=== PATIENT | female | born 1985 | race Caucasian/White ===

== ENCOUNTER → 2018-03-16 | Outpatient (CLI) | payer BC ==
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
== END ==
LOC: M PAIN 14:15
PROVIDERS: ATTEND Anesthesiology
DX: R29.90 Unspecified symptoms and signs involving the nervous system (principal); K21.9 Gastro-esophageal reflux disease without esophagitis; R20.0 Anesthesia of skin; F31.9 Bipolar disorder, unspecified; F60.3 Borderline personality disorder; F41.1 Generalized anxiety disorder; G43.909 Migraine, unspecified, not intractable, without status migrainosus; M50.20 Other cervical disc displacement, unspecified cervical region; I73.00 Raynaud's syndrome without gangrene; G56.01 Carpal tunnel syndrome, right upper limb; Z98.84 Bariatric surgery status; Z79.899 Other long term (current) drug therapy; Z88.2 Allergy status to sulfonamides

== ENCOUNTER → 2018-03-22 | Outpatient (CLI) | payer BC ==
[~2018-03-22] MED LIST: LIDOCAINE 1% SDV INJ 30 ML VIAL As Ordered ONE; MIDAZOLAM INJ 2 MG/2 ML VIAL (J2250) As Ordered ONE; ONDANSETRON 4MG/2ML VIAL (J2405) As Ordered ONE; fentaNYL 100 MCG/2 ML INJECTION (J3010) As Ordered ONE
[2018-03-22 16:35] LABS: CSF TUBE# GLU TUBE 1; CSF TUBE# TP TUBE 1; GLUCOSE CSF 47 MG/DL (40-75); TOTAL PROTEIN,CSF 35 MG/DL (15-45)
[2018-03-22 17:37] LABS: APPEARANCE, CSF CLEAR (CLEAR); COLOR, CSF COLORLESS (COLORLESS); CSF TUBE# CELL CNT TUBE 3
--- NOTE | 2018-04-10 00:11 | ECWPNPC ---
PATIENT NAME: YOGI MEMBRENO : 1985 GENDER: FEMALE VISIT DATE: 03/22/2018 DISCHARGE DATE: 03/22/18 1645 VISIT LOCKED DATE TIME: PHYSICIAN: SKY GRANT MD RESOURCE: SKY GRANT MD REASON FOR APPOINTMENT 1. SPINAL TAP ISAMAR- PATIENT NEEDS ZOFRAN FOR PROCEDURE HISTORY OF PRESENT ILLNESS HISTORY OF PRESENT ILLNESS: PAIN THE PATIENT DESCRIBES THE PAIN... FALL RISK SCREENING: SCREENING : NO FALLS IN THE PAST YEAR. CURRENT MEDICATIONS TAKING DEPAKOTE 500 MG TABLET DELAYED RELEASE ORALLY , NOTES: 03/21/18@2300 TAKING DEPAKOTE 250 MG TABLET DELAYED RELEASE ORALLY , NOTES: 0930 TAKING CYMBALTA 60 MG CAPSULE DELAYED RELEASE PARTICLES 1 CAPSULE ORALLY ONCE A DAY, NOTES: 03/21/18@0800 TAKING CYMBALTA 30 MG CAPSULE DELAYED RELEASE PARTICLES 1 CAPSULE ORALLY ONCE A DAY, NOTES: 03/21/18@0800 TAKING BUSPIRONE HCL 15 MG TABLET 2 ORALLY DAILY, NOTES: 0930 TAKING BOTOX 200 UNIT SOLUTION RECONSTITUTED INJECTION , NOTES: MONTH AND A HALF AGO TAKING VALIUM 10 MG TABLET 1 TABLET NEEDED 1 HOUR PRIOR SPINAL TAP ORALLY DAILY MDD1, NOTES: 1200 MEDICATION LIST REVIEWED AND RECONCILED WITH THE PATIENT PAST MEDICAL HISTORY GERD BIPOLAR DIS ORDER BODERLINE PERSONALITY GENERAL ANXIETY DISORDER IDIOPATHIC INTERCRANIAL PRESSURE MIGRAINES REYNAUDS RIGHT CARPAL LISA 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 2 SON(S) , 3 DAUGHTER(S) . MOTHER HAS ARNOLD CHIARIA DIEASE, CROHNS DIEASE,MS, RESTLESS LEG [id number] YR OLD DAUGHTER HAS EPILESY,[facility] ATROPHY. SOCIAL HISTORY GENERAL: TOBACCO USE ARE YOU A:NONSMOKER ALCOHOL SCREENING DID YOU HAVE A DRINK CONTAINING ALCOHOL IN THE PAST YEAR?YES HOW OFTEN DID YOU HAVE A DRINK CONTAINING ALCOHOL IN THE PAST YEAR?TWO TO FOUR TIMES A MONTH (2 POINTS) HOW MANY DRINKS DID YOU HAVE ON A TYPICAL DAY WHEN YOU WERE DRINKING IN THE PAST YEAR?1 OR 2 (0 POINTS) HOW OFTEN DID YOU HAVE SIX OR MORE DRINKS ON ONE OCCASION IN THE PAST YEAR?LESS THAN MONTHLY (1 POINT) POINTS3 INTERPRETATIONPOSITIVE RECREATIONAL DRUG USE DRUG USE?NO CAFFEINE CAFFEINE USE? 2-3 CUPS OF COFFEE PER DAY, UNSWEETENED TEA ALL DAY LONG [facility] [id number] SCIENTOLOGY LANGUAGE LANGUAGES SPOKEN:[place] EDUCATION LEVEL OF EDUCATION:HIGH SCHOOL COSMETOLOGY SCHOOL LEARNING BARRIERS / SPECIAL NEEDS BARRIERS TO LEARNING?NO OCCUPATION: [employer]. DIET: REGULAR. EXERCISE: NO REGULAR EXERCISE. MARITAL STATUS: . OTHERS AT HOME: CHILDREN. PAIN CLINIC PFS, CLERGY, PUBLIC HEALTH REFERRALS PFS REFERRAL NEEDED?NO CLERGY REFERRAL NEEDED?NO PUBLIC HEALTH REFERRAL NEEDED?NO WAS THE PROVIDER NOTIFIED OF ANY PERTINENT INFO?NO HAS THE PATIENT BEEN EDUCATED REGARDING HIS/HER PLAN OF CARE?YES HAS THE PATIENT BEEN EDUCATED REGARDING PAIN, THE RISK FOR PAIN, THE IMPORTANCE OF EFFECTIVE PAIN MANAGEMENT, AND THE PAIN ASSESSMENT PROCESS?YES ADVANCE DIRECTIVE ADVANCE DIRECTIVE DISCUSSED WITH PATIENT:YES 03/16/18 PT. DECLINES INFORMATION 03/22/18 PT. DECLINES INFORMATION VD HOSPITALIZATION/MAJOR DIAGNOSTIC PROCEDURE KAROL VILLALOBOS C4-C5 2003 SURGERY RELATED REVIEW OF SYSTEMS REVIEWED BY: PROVIDER: . CONSTITUTIONAL: ANY CHANGE IN YOUR MEDICAL CONDITION? YES . CHILLS NO . FEVER NO . PAIN DIARY: PAIN SCORE ____ . DESCRIPTION OF PAIN? ____ . WHEN DID YOU LAST EAT? N/A . WHEN DID YOU LAST DRINK? ____ . WHAT DID YOU DRINK? ____ . NAME OF PERSON DRIVING YOU HOME: ____ . IS THERE A CHANCE YOU COULD BE ? NO . HAVE YOU BEEN SICK IN THE PAST WEEK (COUGH, COLD, FEVER, OR FLU)? NO . DO YOU TAKE ANY BLOOD THINNERS? (COUMADIN, PLAVIX, AGGRENOX, PLETAL, PRADAXA, OR XARELTO) NO . DO YOU HAVE ANY RASHES OR OPEN SORES? NO . ANY CHANGE IN BOWEL OR BLADDER CONTROL? NO . ARE YOU ALLERGIC TO SHELLFISH OR IV DYE? NO . ARE YOU DIABETIC? NO . DO YOU HAVE PACEMAKER OR DEFIBRILLATOR? NO . ANY NEW PROBLEMS WITH MEDICINES OR NEW ALLERGIES? NO . ANY NEW PATTERNS OF PAIN OR NUMBNESS? NO . ANY CHANGE IN YOUR MEDICAL CONDITION? NO . HAVE YOU FALLEN IN THE PAST SIX MONTHS? NO . DO YOU USE ANY TYPE OF TOBACCO (SMOKE, SMOKELESS, CHEW)? NO . ARE YOU ABUSED, NEGLECTED, OR IN AN UNSAFE ENVIRONMENT? NO . DO YOU HAVE THOUGHTS OF HURTING YOURSELF OR SOMEONE ELSE? NO . DO YOU NEED ANY PRESCRIPTIONS? NO . DO YOU HAVE ANY OTHER QUESTIONS OR CONCERNS? NO . INFECTION: DO YOU HAVE NEW INFECTIONS? NO . DO YOU HAVE HISTORY OF MRSA? NO . MUSCULOSKELETAL: ANY NEW PATTERNS OF PAIN OR NUMBNESS? YES, HANDS AND LEGS NUMBNESS . GASTROENTEROLOGY: ANY NEW CHANGE IN BOWEL CONTROL? NO . GENITOURINARY: ANY NEW CHANGE IN BLADDER CONTROL? NO . IS THERE A CHANCE YOU COULD BE ? NO . HEMATOLOGY/LYMPH: DO YOU TAKE ANY BLOOD THINNERS? (FOR EXAMPLE- COUMADIN, PLAVIX, AGGRENOX, PLATEL, PRADAXA, OR XARELTO) NO . WHEN WAS YOUR LAST DOSE? DATE: TIME: . NEUROLOGY: HAVE YOU FALLEN IN THE PAST 12 MONTHS? NO . ANY NEW EXTREMITY NUMBNESS OR WEAKNESS? NO . CARDIOLOGY: DO YOU HAVE A PACEMAKER OR DEFIBRILLATOR? NO . RESPIRATORY: HAVE YOU BEEN SICK IN THE PAST WEEK? YES, DRY COUGH, DR. GRANT AWARE . FEVER NO . FLU LIKE SYMPTOMS? NO . COUGH NO . INTEGUMENTARY: DO YOU HAVE ANY RASHES OR OPEN SORES? NO . ALLERGIC/IMMUNO: ARE YOU ALLERGIC TO IV DYE? NO . ANY NEW ALLERGIES? NO . PSYCHIATRIC: DO YOU HAVE THOUGHTS OF HURTING YOURSELF OR SOMEONE ELSE? NO . ARE YOU ABUSED, NEGLECTED, OR IN AN UNSAFE ENVIRONMENT? NO . ENDOCRINOLOGY: ARE YOU DIABETIC? NO . OTHER: DO YOU NEED ANY PRESCRIPTIONS? NO . IF YES, PLEASE LIST: ____ . ANY NEW PROBLEMS WITH YOUR MEDICATIONS? NO . WHEN DID YOU LAST EAT? ____03/21/18 . WHEN DID YOU LAST DRINK? ____03/21/18 . WHAT DID YOU LAST DRINK? ____WATER . NAME OF PERSON DRIVING YOU HOME? ____ROBIN . DO YOU HAVE ANY OTHER QUESTIONS OR CONCERNS NO . VITAL SIGNS WT 242 LBS, HT 68 IN, BMI 36.79 INDEX, BP 128/61 MM HG, HR 76 /MIN, RR 18 /MIN, TEMP 98.0 F, OXYGEN SAT % 100%, NA INITIALS AW 1300, REVIEWED BY: LS. ASSESSMENTS ENCOUNTER FOR LUMBAR PUNCTURE - Z01.89 (PRIMARY) MS PROTOCOL. TREATMENT ENCOUNTER FOR LUMBAR PUNCTURE CLINICAL NOTES: SPINAL TAP WITH IV SEDATION- PLEASE SEE MEDITECH. PROCEDURE CODES 75504 SPINAL FLUID TAP DIAGNOSTIC 52519 MOD SED SAME PHYS/QHP 5/>YRS 03623 MOD SED SAME PHYS/QHP EA, UNITS: 2.00 DISPOSITION & COMMUNICATION FOLLOW UP REASON: F/UP WITH NEUROLOGIST/ CALL NEEDED ELECTRONICALLY SIGNED BY SKY GRANT MD, ON 04/09/2018 AT 12:55 PM EST DISCLAIMER : THIS IS A VISIT SUMMARY EXTRACTED FROM THE [facility] CHART. IT IS NOT A COPY OF THE [facility] PROGRESS NOTE. SARAVANAN
== END ==
LOC: M PAIN 13:00
PROVIDERS: ATTEND Anesthesiology
DX: G44.221 Chronic tension-type headache, intractable (principal); G43.719 Chronic migraine without aura, intractable, without status migrainosus; M54.81 Occipital neuralgia; I73.00 Raynaud's syndrome without gangrene; Z79.899 Other long term (current) drug therapy; Z88.2 Allergy status to sulfonamides; Z86.59 Personal history of other mental and behavioral disorders; Z98.84 Bariatric surgery status
CPT/HCPCS: 36415; 62270; 82784; 82945; 83916; 84157; 87070; 87076; 87102; 87205; 87252; 87483; 88108; 88313; 89050; 99152; 99153; J2250; J2405; J3010

== ENCOUNTER → 2019-07-18 | Outpatient (CLI) | payer OTHER | LOC: M LABSMTC 10:26 | PROVIDERS: ATTEND Pediatrics | DX: Z03.818 Encounter for observation for suspected exposure to other biological agents ruled out (principal); Z11.59 Encounter for screening for other viral diseases ==

== ENCOUNTER → 2020-02-05 | Outpatient (CLI) | payer SELFPAY | LOC: M LABSMTC 13:49 | PROVIDERS: ATTEND Pediatrics | DX: Z20.828 Contact with and (suspected) exposure to other viral communicable diseases (principal) ==

== ENCOUNTER → 2020-04-07 | Outpatient (CLI) | payer OTHER ==
--- NOTE | 2020-04-07 15:31 | REP ---
INDICATION: PAIN IN CALF LEFT LEG COMPARISON: None. TECHNIQUE: Nielson scale and color Doppler evaluation of the left lower extremity using linear high frequency transducer. FINDINGS: Ultrasound examination of the left lower extremity deep venous structures from the common femoral vein to the popliteal vein demonstrates normal compressibility flow and wave patterns in response to respiration and augmentation. There is no evidence for deep venous thrombosis. Occluded greater saphenous vein consistent with prior ablation. IMPRESSION: No evidence for deep venous thrombosis. <Electronically signed by Shaka Alonso > 04/07/20 1529
== END ==
LOC: M RAD 14:56
PROVIDERS: ATTEND Surgery
DX: M79.662 Pain in left lower leg (principal)